=== PATIENT | female | born 1995 | race African-American/Black ===

== ENCOUNTER 2017-01-05 23:18 | Emergency (ER) | payer OTHER ==
[2017-01-05 23:24] VITALS: BP 139/55
--- NOTE | 2017-01-06 01:16 | ED ---
GI/ HPI - HPI Summary HPI Summary: 21F presents with dysuria for 2 days. Is currently on menses and so unable to tell if any hematuria. denies any vaginal discharge or history of STDs. States that started to develop flank pain today on left side greater than right. Denies any nausea or vomiting. denies any abdominal pain or diarrhea. She denies any recent antibiotic usage. She denies any fever. She admits to pain in her bladder. - History of Current Complaint Chief Complaint: EDFlankPain Time Seen by Provider: 01/06/17 00:50 Stated Complaint: PAINFUL URINATION/BACK PAIN Pain Intensity: 7 - Allergy/Home Medications Allergies/Adverse Reactions: Allergies Allergy/AdvReac Type Severity Reaction Status Date / Time No Known Allergies Allergy Verified 01/28/13 11:13 PMH/Surg Hx/FS Hx/Imm Hx Endocrine/Hematology History: Denies: Hx Diabetes Cardiovascular History: Denies: Hx Congestive Heart Failure, Hx Hypertension History: Denies: Hx Renal Disease Sensory History: Reports: Hx Contacts or Glasses - DAY OF SURGERY INST GLASSES INST TO BRING CASE Denies: Hx Hearing Aid Opthamlomology History: Reports: Hx Contacts or Glasses - DAY OF SURGERY INST GLASSES INST TO BRING CASE - Surgical History Surgery Procedure, Year, and Place: 2003 RT [facility]UR TUMOR [facility] Hx Anesthesia Reactions: No Infectious Disease History: Denies: Traveled Outside the [place] in Last 30 Days - Family History Known Family History: Negative: Cardiac Disease - Social History Alcohol Use: None Substance Use Type: Reports: None Smoking Status (MU): Never Smoked Tobacco Review of Systems Negative: Fever Negative: Chest Pain Negative: Shortness Of Breath Negative: Abdominal Pain, Vomiting, Diarrhea, Nausea Positive: dysuria, frequency, flank pain All Other Systems Reviewed And Are Negative: Yes Physical Exam Triage Information Reviewed: Yes Vital Signs On Initial Exam: Initial Vitals Temp Pulse Resp BP Pulse Ox 97.4 F 83 16 139/55 100 01/05/17 23:20 01/05/17 23:20 01/05/17 23:20 01/05/17 23:20 01/05/17 23:20 Vital Signs Reviewed: Yes Appearance: Positive: Well-Appearing Skin: Positive: Warm, Dry Head/Face: Positive: Normal Head/Face Inspection Eyes: Positive: Normal, Conjunctiva Clear Respiratory/Lung Sounds: Positive: Clear to Auscultation, Breath Sounds Present Cardiovascular: Positive: Normal, RRR Abdomen Description: Positive: Nontender, Soft, CVA Tenderness (L) Bowel Sounds: Positive: Present Diagnostics - Vital Signs Vital Signs Temp Pulse Resp BP Pulse Ox 01/05/17 23:20 97.4 F 83 16 139/55 100 - Laboratory Lab Statement: Any lab studies that have been ordered have been reviewed, and results considered in the medical decision making process. GIGU Course/Dx - Course Course Of Treatment: 21F presents with dysuria and frequency for 2 days. states started to develop flank pain today on left side. on exam has CVA tenderness on left side. denies any n/v. u/a shows leuko esterase so will treat as pyelonephritis due to flank pain. patient understands and agrees with plan - Diagnoses Differential Diagnoses - Female: Pyelonephritis, Urinary Tract Infection, Ureteral Calculi Provider Diagnoses: Pyelonephritis Discharge - Discharge Plan Condition: Good Disposition: HOME Prescriptions: Ciprofloxacin TAB* [Cipro 500 MG TAB*] 500 mg PO BID #27 tab Patient Education Materials: Acute Pyelonephritis (ED) Referrals: [facility] [place] [facility] [Outside] Additional Instructions: Take antibiotic twice a day for 14 days, first dose given in ED Drink plenty of water Take Tylenol or ibuprofen every 6 hours as needed for pain Establish care with primary care physician Return to ED if develop fever, severe vomiting, or any new or worsening symptoms
[2017-01-06 01:33] LABS: Urine Bacteria Absent (Absent); Urine Bilirubin Negative (Negative); Urine Glucose Negative (Negative); Urine Nitrite Negative (Negative)
[2017-01-06] MEDS ORDERED: Ciprofloxacin TAB* 500 MG PO ONE (01:36)
--- NOTE | 2017-01-08 07:09 | PN ---
Progress Note - Progress Note Note: Patient culture grew E coli 25-50,000 placed on cipro will wait for final c/s.
== END 2017-01-06 01:58 | disposition home or self-care (01) ==
LOC: ED 23:18
DX: N12 Tubulo-interstitial nephritis, not specified as acute or chronic (principal); R30.0 Dysuria
CPT/HCPCS: 81003; 81015; 87077; 87086; 87186; 99282; A9270-GY

== ENCOUNTER 2017-07-03 12:59 | Emergency (ER) | payer SELFPAY ==
[2017-07-03] MEDS ORDERED: Ketorolac INJ* 60 MG/2 ML VIAL IM ONE (15:01)
[2017-07-03] MEDS ORDERED: Cyclobenzaprine TAB* 10 MG PO ONE (15:01)
[2017-07-03] MEDS ORDERED: Dexamethasone TAB* 4 MG PO ONE (15:01)
--- NOTE | 2017-07-03 15:06 | ED ---
Back Pain - HPI Summary HPI Summary: 22F presents with back pain today. She was lifting something at work and states she partially dropped it and felt a pull in her back. She denies any pain down the legs. She denies any numbness or tingling. no loss of bowel or bladder or saddle anaesthesia. no fever. did not take anything. - History of Current Complaint Chief Complaint: EDBackInjuryPain Stated Complaint: LOWER BACK PAIN Time Seen by Provider: 07/03/17 14:16 Pain Intensity: 10 - Allergies/Home Medications Allergies/Adverse Reactions: Allergies Allergy/AdvReac Type Severity Reaction Status Date / Time No Known Allergies Allergy Verified 01/28/13 11:13 PMH/Surg Hx/FS Hx/Imm Hx Endocrine/Hematology History: Denies: Hx Diabetes Cardiovascular History: Denies: Hx Congestive Heart Failure, Hx Hypertension History: Denies: Hx Renal Disease Sensory History: Reports: Hx Contacts or Glasses - DAY OF SURGERY INST GLASSES INST TO BRING CASE Denies: Hx Hearing Aid Opthamlomology History: Reports: Hx Contacts or Glasses - DAY OF SURGERY INST GLASSES INST TO BRING CASE - Surgical History Surgery Procedure, Year, and Place: 2003 RT [facility]UR TUMOR [facility] Hx Anesthesia Reactions: No Infectious Disease History: No Infectious Disease History: Denies: Traveled Outside the [place] in Last 30 Days - Family History Known Family History: Negative: Cardiac Disease - Social History Alcohol Use: None Substance Use Type: Reports: None Smoking Status (MU): Never Smoked Tobacco Review of Systems Negative: Fever Negative: Chest Pain Negative: Shortness Of Breath Positive: Myalgia - back pain All Other Systems Reviewed And Are Negative: Yes Physical Exam Triage Information Reviewed: Yes Vital Signs On Initial Exam: Initial Vitals Temp Pulse Resp BP Pulse Ox 98.0 F 89 20 139/83 98 07/03/17 13:10 07/03/17 13:10 07/03/17 13:10 07/03/17 13:10 07/03/17 13:10 Vital Signs Reviewed: Yes Appearance: Positive: Well-Appearing Skin: Positive: Warm, Dry Head/Face: Positive: Normal Head/Face Inspection Eyes: Positive: Normal, Conjunctiva Clear Respiratory/Lung Sounds: Positive: Clear to Auscultation, Breath Sounds Present Cardiovascular: Positive: Normal, RRR Musculoskeletal: Positive: Limited @ - back, Other - no midline tenderness, neg SLR, good pulses Neurological: Positive: Reflexes Intact - patella Psychiatric: Positive: Normal - [place] Coma Scale Coma Scale Total: 15 Diagnostics - Vital Signs Vital Signs Temp Pulse Resp BP Pulse Ox 07/03/17 13:10 98.0 F 89 20 139/83 98 - Laboratory Lab Statement: Any lab studies that have been ordered have been reviewed, and results considered in the medical decision making process. Back Pain Course/Dx - Course Course Of Treatment: 22F presents with back pain today. She was lifting something at work and states she partially dropped it and felt a pull in her back. She denies any pain down the legs. She denies any numbness or tingling. no loss of bowel or bladder or saddle anaesthesia. no fever. did not take anything. no tenderness midline back, neg SLR. will treat with flexeril and steriod. patient understands and agrees with plan. - Diagnoses Differential Diagnosis/HQI/PQRI: Positive: Herniated Disc, Strain, Sprain Provider Diagnoses: Back pain Discharge - Discharge Plan Condition: Good Disposition: HOME Prescriptions: Cyclobenzaprine TAB* [Flexeril 10 MG TAB*] 10 mg PO TID PRN #9 tab PRN Reason: Pain Methylprednisolone [Medrol Dosepak 4 MG*] 4 mg PO .SEE ELICEO INSTRUCTION #1 packet Patient Education Materials: Back Pain (ED) Forms: *Work Release Referrals: [facility] [place] [facility] [Outside] Additional Instructions: Follow directions on package for Medrol pack Take muscle relaxers three times a day for 3 days Use ibuprofen or Tylenol for pain every 6 hours ice/heat area, move as much as possible Establish care with primary to follow up Return to ED if develop any new or worsening symptoms
[2017-07-03 15:19] VITALS: BP 132/76
== END 2017-07-03 15:18 | disposition home or self-care (01) ==
LOC: ED 12:59
DX: M54.9 Dorsalgia, unspecified (principal)
CPT/HCPCS: 96372; 99282; A9270-GY; J1885; J8540

== ENCOUNTER 2019-08-05 08:11 | Emergency (ER) | payer SELFPAY ==
--- NOTE | 2019-08-05 08:15 | ED ---
GI/ HPI - HPI Summary HPI Summary: 24-year-old female with no significant past medical history presents to the emergency department today with a chief complaint of "I think I have a UTI". Patient states that 2 days ago she started having pain in her lower abdomen which described as a 3 out of 10 aching pain. She also endorses pain with urination which she describes as burning. She endorses that her urine is foul smelling and darker than usual. She reports symptoms of increased frequency and urgency. She's had UTIs in the past and states this feels like that. She is sexually active with a new partner but denies any vaginal discharge, vaginal odor, itching. Patient denies fever, back pain, chest pain, abdominal pain, shortness of breath. - History of Current Complaint Chief Complaint: EDUrogenitalProblems Time Seen by Provider: 08/05/19 08:15 Stated Complaint: POSS UTI PER PT Hx Obtained From: Patient Onset/Duration: Started Days Ago - 2 days Timing: Constant Severity: Mild Current Severity: Mild Pain Intensity: 3 Location of Pain: Suprapubic Pain Characteristics: Dull, Burning Associated Signs and Symptoms: Positive: New Sexual Partner, UTI Symptoms. Negative: Back Pain, Fever Additional Signs & Symptoms: Negative: Vaginal Discharge Aggravating Factor(s): Urination Alleviating Factor(s): Nothing - Risk Factors GI Bleed Risk Factor(s): Negative Spontaneous AB Risk Factor(s): Negative Placental Abruption Risk Factor(s): Negative Ectopic Risk Factor(s): Negative Ovarian Torsion Risk Factor(s): Reproductive Age - Allergy/Home Medications Allergies/Adverse Reactions: Allergies Allergy/AdvReac Type Severity Reaction Status Date / Time No Known Allergies Allergy Verified 08/05/19 08:12 PMH/Surg Hx/FS Hx/Imm Hx Endocrine/Hematology History: Denies: Hx Diabetes Cardiovascular History: Denies: Hx Congestive Heart Failure, Hx Hypertension History: Denies: Hx Renal Disease Sensory History: Reports: Hx Contacts or Glasses - DAY OF SURGERY INST GLASSES INST TO BRING CASE Denies: Hx Hearing Aid Opthamlomology History: Reports: Hx Contacts or Glasses - DAY OF SURGERY INST GLASSES INST TO BRING CASE - Surgical History Surgery Procedure, Year, and Place: 2003 RT [facility]UR T[facility] Hx Anesthesia Reactions: No Infectious Disease History: No Infectious Disease History: Denies: Traveled Outside the [place] in Last 30 Days - Family History Known Family History: Negative: Cardiac Disease - Social History Alcohol Use: None Substance Use Type: Reports: None Smoking Status (MU): Never Smoked Tobacco Review of Systems Constitutional: Negative Eyes: Negative Cardiovascular: Negative Respiratory: Negative Positive: burning, dysuria, frequency, pain, urgency. Negative: discharge, flank pain Skin: Negative Psychological: Normal All Other Systems Reviewed And Are Negative: Yes Physical Exam Triage Information Reviewed: Yes Vital Signs On Initial Exam: Initial Vitals Temp Pulse Resp BP Pulse Ox 97.5 F 93 17 143/92 100 08/05/19 08:12 08/05/19 08:12 08/05/19 08:12 08/05/19 08:12 08/05/19 08:12 Vital Signs Reviewed: Yes Appearance: Positive: Well-Appearing, No Pain Distress Skin: Positive: Warm, Skin Color Reflects Adequate Perfusion Head/Face: Positive: Normal Head/Face Inspection Eyes: Positive: Normal, EOMI ENT: Positive: Hearing grossly normal Respiratory/Lung Sounds: Positive: Clear to Auscultation Cardiovascular: Positive: Normal, RRR, S1, S2 Abdomen Description: Positive: Soft, Other: - Abdomen is tender to palpation in the suprapubic region.. Negative: CVA Tenderness (R), CVA Tenderness (L), Guarding Bowel Sounds: Positive: Present Psychiatric: Positive: Normal AVPU Assessment: Alert Procedures - Sedation Patient Received Moderate/Deep Sedation with Procedure: No Diagnostics - Vital Signs Vital Signs Temp Pulse Resp BP Pulse Ox 08/05/19 08:12 97.5 F 93 17 143/92 100 - Laboratory Lab Statement: Any lab studies that have been ordered have been reviewed, and results considered in the medical decision making process. GIGU Course/Dx - Course Course Of Treatment: Patient was evaluated for possible UTI in the emergency department. Patient was seen and evaluated. Urinalysis was obtained which revealed evidence of urinary tract infection. Discussed the clinical correlation of her increased frequency, suprapubic pain, burning with urination. Pyelonephritis was considered but not extracted due to patient being afebrile and complaining of no flank pain and having no CVA tenderness. Patient was getting nitrofurantoin twice a day for 5 days and instructed to complete the full course of antibiotics. She is told to take ibuprofen for pain related to her symptoms. She is to follow-up with her primary care physician if her pain does not resolve within 5 days after treatment with antibiotics. She was told that if her symptoms progress or she develops any new symptoms to return to the emergency Department immediately if symptoms include fever, vomiting, significant back pain. During her stay in the emergency department her vitals remained stable. - Diagnoses Differential Diagnoses - Female: Candidiasis, Cervicitis, Cystitis, Vaginitis Provider Diagnoses: Urinary tract infection Discharge ED - Sign-Out/Discharge Documenting (check all that apply): Patient Departure - Discharge Plan Condition: Stable Disposition: HOME Prescriptions: Nitrofurantoin Monohyd/M-Cryst [Macrobid 100 mg Capsule] 100 mg PO BID 5 Days # 10 cap Patient Education Materials: Urinary Tract Infection in Women (ED) Referrals: No Primary Care Phys,NOPCP [Primary Care Provider] - Additional Instructions: You were seen in the emergency department today and diagnosed with a urinary tract infection. Take prescribed antibiotic as directed. You may do this by taking one pill in the morning and one pill at night for 5 days. Please complete full course of antibiotics even if you began feeling better. For pain you may take ibuprofen 600 mg every 6 hours for 5 days. Return to the emergency department if you develop any new symptoms or worsening symptoms. Please follow-up with your primary care physician if symptoms do not disappear after course of antibiotics or if you develop any fever, vomiting, extreme back pain. Return to activity as tolerated. - Billing Disposition and Condition Condition: STABLE Disposition: Home - Attestation Statements Provider Attestation: pt seen by midlevel provider independently, based on their assessment, it was not necessary to present the case to me but I was available for consultation. I did not form a physician-patient relationship with the patient. The chart however, has been reviewed. am signing this note strictly in an administrative capacity.
[2019-08-05 08:57] LABS: Urine Appearance Turbid; Urine Bacteria Absent (Absent); Urine Bilirubin Negative (Negative); Urine Blood 2+ (Negative); Urine Color Yellow; Urine Glucose Negative (Negative); Urine Ketones Negative (Negative); Urine Nitrite Negative (Negative); Urine Protein 2+(100 mg/dL) (Negative); Urine Red Blood Cell 3+(>10/hpf) (Absent); Urine Specific Gravity 1.023 (1.010-1.030); Urine Squamous Epithelial Cell Present (Absent); Urine Urobilinogen Negative (Negative); Urine White Blood Cell 3+(>20/hpf) (Absent)
[2019-08-05 09:49] VITALS: BP 129/70
== END 2019-08-05 09:48 | disposition home or self-care (01) ==
LOC: ED 08:11
DX: N39.0 Urinary tract infection, site not specified (principal)
CPT/HCPCS: 81003; 81015; 87086; 99282